=== PATIENT | female | born 1945 | race Hispanic/Latino ===

== ENCOUNTER → 2019-03-31 | Outpatient (CLI) | payer MEDICARE | END | disposition home or self-care (01) | LOC: RAH 08:33 | PROVIDERS: ATTEND Family Medicine | DX: N13.30 Unspecified hydronephrosis (principal); Z90.49 Acquired absence of other specified parts of digestive tract | CPT/HCPCS: 74176 ==

== ENCOUNTER 2019-07-23 08:14 | Day surgery (SDC) | payer MEDICARE ==
[2019-07-21 16:00] VITALS: BP 170/62
[2019-07-21 16:46] LABS: APPEARANCE,URINE Clear (CLEAR); BILIRUBIN,URINE Negative (NEGATIVE); COLOR,URINE Yellow (YELLOW); GLUCOSE, URINE (UA) Negative (NEGATIVE); KETONES,URINE Negative (NEGATIVE); LEUKOCYTE ESTERASE ,URINE Negative (NEGATIVE); NITRATE,URINE Negative (NEGATIVE); OCCULT BLOOD,URINE Trace (NEGATIVE); PROTEIN,URINE Negative (NEGATIVE); UROBILINOGEN,URINE 0.2 mg/dL (0.2-1.0)
[2019-07-21 16:50] LABS: BASOPHILS % (AUTO) 0.7 % (0.0-5.0); EOSINOPHILS % (AUTO) 2.1 % (0.0-8.0); HEMATOCRIT 36.2 % (36-48); LYMPHOCYTES % (AUTO) 32.4 % (21.0-51.0); MEAN CORPUSCULAR HEMOGLOBIN 29.1 pg (27.0-33.0); MEAN CORPUSCULAR HGB CONC 32.6 g/dL (32.0-36.0); MEAN CORPUSCULAR VOLUME 89.3 fL (79-99); MONOCYTES % (AUTO) 9.7 % (3.0-13.0); NEUTROPHILS % (AUTO) 55.1 % (40.0-77.0); PLATELET COUNT (AUTO) 179 K/uL (130-400); RED BLOOD CELL COUNT(AUTO) 4.05 MIL/uL (4.00-5.50); RED CELL DISTRIBUTION WIDTH 15.3 % (11.0-15.5); WHITE BLOOD COUNT (AUTO) 6.3 K/uL (4.8-10.8)
[2019-07-21 17:00] LABS: BACTERIA,URINE Few /HPF (None Seen); MUCUS,URINE Few LPF (None Seen)
[2019-07-21 17:20] LABS: INR 0.94 (0.85-1.15); PARTIAL THROMBOPLASTIN TIME 25.7 SEC (26.3-35.5); PROTHROMBIN TIME 9.9 SEC (9.6-11.6)
[2019-07-21 17:51] LABS: CREATININE 1.2 mg/dL (0.5-1.5)
[2019-07-23] VITALS (17 sets, daily range): BP systolic 142–159; BP diastolic 62–98
[~2019-07-23] VITALS: Ht 149.9 cm; Wt 54.3 kg
[~2019-07-23 08:14] MED LIST: ADVAIR IH; ALBU18HF7 IH; ALEN70TA10 PO; ATOR20TA65 PO; BUPR300T54 PO; GENTAMICIN 80 MG/NS 100 ML PB 100 ML IV SCH; HYDR25TA PO; INSU100I21 SQ; LEVO75 PO; LISI10TA7 PO; METF-446 PO; NITR100C4 PO; [UNRECOGNIZED DRUG - SUPPLY]
[2019-07-23] MEDS ORDERED: IOHEXOL-350 50ML VIAL IV ONE (09:24)
[2019-07-23] MEDS: CEFTRIAXONE SODIUM 1 GM IVP SCH ×2 (09:30→12:15)
[2019-07-23] MEDS ORDERED: SODIUM CHLORIDE 0.9% 1000ML 1,000 ML IV ONE (09:33)
[2019-07-23] MEDS ORDERED: LIDOCAINE PF 2% 5ML ABBOJECT ONE (10:04)
[2019-07-23] MEDS ORDERED: PROPOFOL 10 MG/ML 20ML VIAL IV ONE (10:04)
[2019-07-23] MEDS ORDERED: FENTANYL CITRATE PF 50 MCG/1 ML 2ML VIAL ONE (10:04)
[2019-07-23] MEDS ORDERED: MIDAZOLAM HCL 1 MG/ML 2ML VIAL ONE (10:05)
[2019-07-23] MEDS ORDERED: EPHEDRINE SULFATE 50 MG/ML AMPULE ONE (11:21)
[2019-07-23] MEDS ORDERED: ONDANSETRON HCL 4 MG/2 ML VIAL ONE (11:34)
[2019-07-23] MEDS ORDERED: METHYLENE BLUE 10 MG/ML AMP ONE (11:43)
--- NOTE | 2019-07-23 13:15 | NUR ---
PATIENT ARRIVED PATIENT BROUGHT TO DAY PATIENT VIA BED BY FATUMA ROLLE. PATIENT [id number], RESPIRATIONS UNLABORED. VITAL SIGNS STABLE. PATIENT DENIES ANY PAIN AT THIS TIME. FAMILY MEMBER (DAUGHTER) BROUGHT TO ROOM TO BE WITH PATIENT.
--- NOTE | 2019-07-23 13:53 | NUR ---
DISCHARGE INSTRUCTIONS DISCHARGE INSTRUCTIONS PROVIDED TO PATIENT'S DAUGHTER. FOLLOW UP APPOINTMENT AND INSTRUCTIONS PROVIDED, PATIENT'S DAUGHTER VERBALIZED UNDERSTANDING. ALL QUESTIONS/CONCERNS ADDRESSED.
--- NOTE | 2019-07-23 14:20 | NUR ---
DISCHARGED PATIENT DISCHARGED FROM FACILITY VIA WHEELCHAIR AND ACCOMPANIED BY DAUGHTER. PT ASSISTED INTO PRIVATE VEHICLE BY SUDHAKAR SANTIAGO MA.
== END 2019-07-23 14:20 | disposition home or self-care (01) ==
LOC: DAH 08:14 → SUH 08:14
PROVIDERS: ATTEND Urology
DX: N30.40 Irradiation cystitis without hematuria (principal); N13.30 Unspecified hydronephrosis; E78.5 Hyperlipidemia, unspecified; E11.9 Type 2 diabetes mellitus without complications; J45.909 Unspecified asthma, uncomplicated; I10 Essential (primary) hypertension; K21.9 Gastro-esophageal reflux disease without esophagitis; Z90.49 Acquired absence of other specified parts of digestive tract; Z90.710 Acquired absence of both cervix and uterus; Z79.4 Long term (current) use of insulin; Z82.49 Family history of ischemic heart disease and other diseases of the circulatory system; Z83.3 Family history of diabetes mellitus; Z82.3 Family history of stroke
CPT/HCPCS: 36415; 52005; 71045; 74420; 80048; 81001; 82948; 85025; 85610; 85730; 87088; 93005; 96365; A4215; A4221; A4222; A4223 ×2; A4358; A4600; A4663; J0696; J1580; J2001; J2250; J2405; J2704; J3010; J3490; J7030; J7120; Q9967; Q9968

== ENCOUNTER 2024-01-28 01:38 | Emergency (ER) | payer MEDICARE ==
[~2024-01-28] VITALS: Ht 154.9 cm; Wt 68.0 kg
[~2024-01-28 01:38] MED LIST changes: -ALEN70TA10 PO; +ALEN70TA80 PO; +BUPR-317 PO; -BUPR300T54 PO; -GENTAMICIN 80 MG/NS 100 ML PB 100 ML IV SCH; -INSU100I21 SQ; +INSU100I22 SQ; +LISI10TA24 PO; -LISI10TA7 PO
[2024-01-28 03:42] LABS: BASOPHILS # (AUTO) 0.02 K/uL (0.00-0.20); BASOPHILS % (AUTO) 0.4 % (0.0-5.0); EOSINOPHILS # (AUTO) 0.11 K/uL (0.00-0.70); EOSINOPHILS % (AUTO) 2.3 % (0.0-8.0); HEMATOCRIT 33.3 % (36-48); IMMATURE GRANULOCYTE ABSOLUTE 0.01 K/uL (0-1); LYMPHOCYTES % (AUTO) 21.3 % (21.0-51.0); MEAN CORPUSCULAR HEMOGLOBIN 28.1 pg (27.0-33.0); MEAN CORPUSCULAR HGB CONC 31.8 g/dL (32.0-36.0); MEAN CORPUSCULAR VOLUME 88.3 fL (79-99); MONOCYTES # (AUTO) 0.5 K/uL (0.1-1.0); MONOCYTES % (AUTO) 9.4 % (3.0-13.0); NEUTROPHILS # (AUTO) 3.2 K/uL (1.8-7.7); NEUTROPHILS % (AUTO) 66.4 % (40.0-77.0); PLATELET COUNT (AUTO) 148 K/uL (130-400); RED BLOOD CELL COUNT(AUTO) 3.77 MIL/uL (4.00-5.50); RED CELL DISTRIBUTION WIDTH 14.2 % (11.0-15.5); WHITE BLOOD COUNT (AUTO) 4.9 K/uL (4.8-10.8)
[2024-01-28 03:52] LABS: CREATININE 1.4 mg/dL (0.5-1.5); POTASSIUM 3.8 mmol/L (3.5-5.1)
[2024-01-28 04:01] LABS: ALBUMIN 3.5 g/dL (3.5-5.0); BILIRUBIN,TOTAL 0.5 mg/dL (0.2-1.0)
[2024-01-28 04:04] LABS: B-TYPE NATRIURETIC PEPTIDE 21 pg/mL (0-100)
[2024-01-28 05:42] VITALS: BP 131/57; O2SAT 99
[2024-01-28] MEDS: SOLU-MEDROL 40MG VIAL IVP ONE (06:09)
[2024-01-28] MEDS ORDERED: PRED20TA3 PO (06:10)
[2024-01-28] MEDS: IPRATROPIUM/ALBUTEROL SULFATE 3 ML SOLUTION IH ONE (06:19)
[2024-01-28 06:20] VITALS: PULSE 74; RESP 20
== END 2024-01-28 06:35 | disposition home or self-care (01) ==
LOC: EDH 01:38
DX: J45.901 Unspecified asthma with (acute) exacerbation (principal); I10 Essential (primary) hypertension; E11.9 Type 2 diabetes mellitus without complications; Z79.84 Long term (current) use of oral hypoglycemic drugs; Z79.899 Other long term (current) drug therapy; Z98.890 Other specified postprocedural states
CPT/HCPCS: 99285; 96374; 71045; 84484; 80053; 83880; 85025; 36415; 93005; 94640; J2920